=== PATIENT | female | born 1960 | race Caucasian/White ===

== ENCOUNTER 2020-01-17 05:39 | Observation (INO) | payer OTHER ==
[2020-01-14 13:54] LABS: HEMATOCRIT 39.9 % (36-46); HEMOGLOBIN 13.4 g/dL (12.0-16.0); MEAN CORPUSCULAR HEMOGLOBIN 29.8 pg (26.0-34.0); MEAN CORPUSCULAR HGB CONC 33.7 G/dL (31.0-37.0); MEAN CORPUSCULAR VOLUME 89 fL (80-100); PLATELET COUNT (AUTO) 199 K/uL (150-450); RED BLOOD CELL COUNT(AUTO) 4.51 MIL/uL (4.00-5.20)
[2020-01-14 14:04] LABS: CALCIUM, TOTAL 8.8 mg/dL (8.8-10.5); CREATININE 0.98 mg/dL (0.60-1.30); POTASSIUM 3.7 mmol/L (3.5-5.1)
[2020-01-14 14:10] LABS: PROTHROMBIN TIME 10.7 SEC (9.4-11.6)
[2020-01-14 14:11] LABS: BILIRUBIN,TOTAL 0.4 mg/dL (0.1-1.0); TOTAL PROTEIN, SERUM 7.6 g/dL (6.4-8.2)
[2020-01-14 14:12] LABS: BAND NEUTROPHILS % (MANUAL) 1 % (0-5); EOSINOPHILS % (MANUAL) 3 % (1-6); LYMPHOCYTES % (MANUAL) 35 % (22-44); SEGMENTED NEUTROPHILS % 61 % (40-70)
[~2020-01-17] VITALS: Ht 154.9 cm; Wt 66.2 kg
[~2020-01-17 05:39] MED LIST: HYDR-4069 PO; MELA3TAB82 PO; PREG50 PO
[2020-01-17] MEDS ORDERED: CeFAZolin 2 GM/DEXTROSE 50 ML IV ONE ×2 (05:41→06:00)
[2020-01-17] MEDS ORDERED: RINGERS SOLUTION,LACTATED 1,000 ML IV ONE ×2 (05:41→06:00)
[2020-01-17] MEDS ORDERED: CITA-144 PO (06:34)
[2020-01-17] MEDS ORDERED: ALBU8.5H8 IH (06:34)
[2020-01-17] MEDS ORDERED: VANCOMYCIN HCL 1 GM/VIAL ONE (07:24)
[2020-01-17] MEDS ORDERED: MAG HYDROX/AL HYDROX/SIMETH 30 ML SUSP UDCUP PO PRN (07:30)
[2020-01-17] MEDS ORDERED: DiphenhydrAMINE HCL 50 MG/ML VIAL IVP PRN (07:30)
[2020-01-17] MEDS ORDERED: ONDANSETRON HCL 4 MG/2 ML VIAL IVP PRN (07:30)
[2020-01-17] MEDS ORDERED: MEPERIDINE-PF 25 MG/ML VIAL IVP PRN (08:15)
[2020-01-17] MEDS ORDERED: ZOLPIDEM TARTRATE 5 MG TABLET PO PRN (08:15)
[2020-01-17] MEDS ORDERED: OxyCODONE HCL 5 MG IR TABLET PO PRN (08:15)
[2020-01-17] MEDS ORDERED: FentaNYL CITRATE-PF 100 MCG/2 ML VIAL IVP PRN (08:15)
[2020-01-17] MEDS ORDERED: SUGAMMADEX SODIUM 200 MG/2 ML VIAL IVP ONE (08:59)
[2020-01-17] MEDS: DOCUSATE SODIUM 100 MG CAPSULE PO SCH ×2 (09:00→19:55)
[2020-01-17] MEDS ORDERED: HYDROmorphone 2 MG/ML SYRINGE ONE (09:42)
[2020-01-17] MEDS: HYDROmorphone 2 MG/ML SYRINGE IVP PRN ×7 (09:45→22:29)
[2020-01-17 10:50] VITALS: BP 150/95
[2020-01-17] MEDS ORDERED: ROCURONIUM BROMIDE 10 MG/ML 5 ML VIAL IVP ONE (12:00)
[2020-01-17] MEDS ORDERED: 0.9% SODIUM CHLORIDE 10 ML VIAL IVP ONE (12:00)
[2020-01-17] MEDS ORDERED: KETAMINE HCL 50 MG/ML 10 ML VIAL IVP ONE (12:00)
[2020-01-17] MEDS ORDERED: PROPOFOL 1% 20 ML VIAL IVP ONE (12:00)
[2020-01-17] MEDS ORDERED: DEXAMETHASONE SOD PHOS 4 MG/ML VIAL IVP ONE (12:00)
[2020-01-17] MEDS ORDERED: SUCCINYLCHOLINE CHLORIDE 20 MG/ML 10 ML VIAL IVP ONE (12:00)
[2020-01-17] MEDS ORDERED: LIDOCAINE/PF 2% 5 ML VIAL INJ ONE (12:00)
[2020-01-17] MEDS ORDERED: ONDANSETRON HCL 4 MG/2 ML VIAL IVP ONE (12:00)
[2020-01-17] MEDS ORDERED: EPHEDrine SULFATE 50 MG/ML VIAL IM ONE (12:00)
[2020-01-17] MEDS ORDERED: FentaNYL CITRATE-PF 100 MCG/2 ML VIAL IVP ONE (12:00)
[2020-01-17] MEDS ORDERED: MIDAZOLAM HCL 2 MG/2 ML VIAL IVP ONE (12:00)
[2020-01-17] MEDS ORDERED: SODIUM CHLORIDE 0.9% 500 ML IV ONE (13:34)
[2020-01-17] MEDS: ACETAMINOPHEN 1000 MG/ISO-OSM 100 ML IV SCH ×2 (13:43→18:35)
[2020-01-17 15:20] VITALS: BP 114/70
[2020-01-17] MEDS: CYCLOBENZAPRINE HCL 10 MG TABLET PO PRN (17:36)
[2020-01-17] MEDS: BENZOCAINE/MENTHOL LOZENGE PO PRN ×2 (17:36→22:38)
[2020-01-17] MEDS: ONDANSETRON HCL 4 MG/2 ML VIAL IVP PRN (17:52)
[2020-01-17] MEDS ORDERED: PNEUMOCOCCAL VACCINE POLYVALENT 0.5 ML VIAL [PPSV23] IM ONE (19:45)
[2020-01-17] MEDS: PREGABALIN 50 MG CAPSULE PO SCH (19:55)
[2020-01-17] MEDS: OXYGEN THERAPY IH SCH (20:02)
[2020-01-17 20:38] VITALS: BP 105/69
[2020-01-17] MEDS ORDERED: OxyCODONE HCL 10 MG IR TABLET PO PRN (20:54)
[2020-01-17] MEDS: ZOLPIDEM TARTRATE 10 MG TABLET PO PRN (22:33)
[2020-01-18 00:15] VITALS: BP 108/65
[2020-01-18] MEDS: ACETAMINOPHEN 1000 MG/ISO-OSM 100 ML IV SCH (01:16)
[2020-01-18 05:15] VITALS: BP 133/68
[2020-01-18 07:39] VITALS: BP 122/84
[2020-01-18] MEDS: OXYGEN THERAPY IH SCH (08:00)
[2020-01-18] MEDS: OxyCODONE HCL/ACETAMINOPHEN 10-325 MG TABLET PO PRN ×2 (08:25→21:18)
[2020-01-18] MEDS: DOCUSATE SODIUM 100 MG CAPSULE PO SCH ×2 (08:26→19:46)
[2020-01-18] MEDS: PREGABALIN 50 MG CAPSULE PO SCH ×2 (08:26→19:46)
[2020-01-18] MEDS: CYCLOBENZAPRINE HCL 10 MG TABLET PO PRN ×2 (08:26→21:20)
[2020-01-18] MEDS: BENZOCAINE/MENTHOL LOZENGE PO PRN ×2 (08:28→13:31)
[2020-01-18] MEDS: HYDROmorphone 2 MG/ML SYRINGE IVP PRN ×3 (10:13→19:47)
[2020-01-18 15:30] VITALS: BP 140/75
[2020-01-18] MEDS: ONDANSETRON HCL 4 MG/2 ML VIAL IVP PRN (16:34)
[2020-01-18 20:02] VITALS: BP 130/69
[2020-01-18] MEDS: ZOLPIDEM TARTRATE 10 MG TABLET PO PRN (21:18)
[2020-01-19 04:26] VITALS: BP 152/92
[2020-01-19] MEDS: HYDROmorphone 2 MG/ML SYRINGE IVP PRN ×3 (04:36→09:21)
[2020-01-19] MEDS: OxyCODONE HCL/ACETAMINOPHEN 10-325 MG TABLET PO PRN ×2 (05:07→08:14)
[2020-01-19 05:17] VITALS: BP 164/94
[2020-01-19] MEDS: CYCLOBENZAPRINE HCL 10 MG TABLET PO PRN (05:37)
[2020-01-19] MEDS: BENZOCAINE/MENTHOL LOZENGE PO PRN ×2 (05:37→08:54)
[2020-01-19 07:39] VITALS: BP 127/75
[2020-01-19] MEDS: OXYGEN THERAPY IH SCH (08:00)
[2020-01-19] MEDS: PREGABALIN 50 MG CAPSULE PO SCH (08:13)
[2020-01-19] MEDS: DOCUSATE SODIUM 100 MG CAPSULE PO SCH (08:13)
[2020-01-19] MEDS: ONDANSETRON HCL 4 MG/2 ML VIAL IVP PRN (09:27)
== END 2020-01-19 11:05 | disposition home or self-care (01) ==
LOC: INTOOBSV 05:39 → 6N 05:39 → UNDODISIN 01-19 11:05
PROVIDERS: ADMIT Orthopaedic Surgery Orthopaedic Surgery of the Spine; ATTEND Orthopaedic Surgery Orthopaedic Surgery of the Spine
DX: M48.02 Spinal stenosis, cervical region (principal)
CPT/HCPCS: 20936; 22551; 22552 ×2; 22853 ×3; 36415; 80053; 85007; 85027; 85610; 85730; 87081; 87635; 93005; 96374; 96375; 96376 ×3; 97116; 97162; 99219; C1716; G0238; J0131 ×2; J0330; J0690; J1100; J1170 ×3; J2250; J2405 ×3; J2704; J3010; J3370; J3490 ×4; J7040; J7120; G0378